=== PATIENT | male | born 1945 | race Caucasian/White ===

== ENCOUNTER 2019-12-14 09:38 | Outpatient (CLI) | payer OTHER, SELFPAY ==
[2019-12-14 10:20] LABS: Basophils Percent Auto 0.5 % (0.2-1.2); Eosinophils Absolute Auto 0.2 K/mm3 (0-0.3); Eosinophils Percent Auto 2.6 % (0-4.4); Hematocrit 40.7 % (42.0-52.0); Hemoglobin 13.9 g/dL (14.0-18.0); Immature Granulocyte Absolute 0.01 K/mm3 (0.00-0.031); Immature Granulocyte Percent A 0.1 % (0-0.5); Lymphocytes Absolute Auto 1.66 K/mm3 (0.9-3.2); Lymphocytes Percent Auto 22.7 % (18.3-44.2); Mean Corpuscular HGB Conc 34.2 g/dl (32-36); Mean Corpuscular Volume 93.6 fl (80-100); Mean Platelet Volume 9.8 fl (7.4-10.4); Monocytes Absolute Auto 0.7 K/mm3 (0.1-0.6); Monocytes Percent Auto 8.9 % (2.6-8.5); Neutrophils Absolute Auto 4.8 K/mm3 (1.3-6.7); Neutrophils Percent Auto 65.2 % (45.5-73.1); Platelet Count Result 173 k/mm3 (150-375); Red Blood Count 4.35 M/mm3 (4.6-6.20); Red Cell Distribution Width 12.6 % (11.5-14.5); White Blood Count 7.3 K/mm3 (4.5-10.0)
[2019-12-14 10:28] LABS: Hemoglobin A1C 5.4 % (<5.7)
[2019-12-14 10:34] LABS: Alanine Aminotransferase 24 U/L (4-50); Albumin Level 4.1 g/dL (3.5-5.1); Alkaline Phosphatase 69 U/L (38-126); Anion Gap 4 mmol/L (8-16); Aspartate Amino Transferase 30 U/L (17-59); Bilirubin,Total 0.8 mg/dL (0.2-1.3); Blood Urea Nitrogen 17 mg/dL (9-20); Calcium 9.2 mg/dL (8.4-10.2); Carbon Dioxide 29 mmol/L (22-30); Chloride 104 mmol/L (98-107); Cholesterol 128 mg/dL (0-200); Estimated Glomerular Filt Rate > 60; Glucose 110 mg/dL (75-110); HDL Direct 41 mg/dL; Potassium 4.7 mmol/L (3.4-5.0); Sodium 137 mmol/L (137-145); Triglycerides 65 mg/dL (<150)
[2019-12-14 10:45] LABS: LDL Cholesterol Direct 71 mg/dL
[2019-12-14 11:03] LABS: Prostate Specific Antigen 2.8 ng/mL (< OR = 4.0)
[2019-12-14 11:10] LABS: Free T4 Free Thyroxine 1.28 ng/mL (0.78-2.19)
== END 2019-12-14 09:39 | disposition home or self-care (01) ==
PROVIDERS: PCP Physician Assistant; Visit Provider Physician Assistant
DX: E78.5 Hyperlipidemia, unspecified (principal); Z79.899 Other long term (current) drug therapy; Z12.5 Encounter for screening for malignant neoplasm of prostate; Z13.1 Encounter for screening for diabetes mellitus
CPT/HCPCS: 36415; 80048; 80061; 80076; 83036; 84153; 84439; 84443; 85025; G0103

== ENCOUNTER 2019-12-21 15:10 | Outpatient (CLI) | payer OTHER, SELFPAY ==
[2019-12-21 16:34] LABS: Hematocrit 40.7 % (42.0-52.0); Mean Corpuscular HGB Conc 34.4 g/dl (32-36); Mean Corpuscular Hemoglobin 32.4 pg (26-34); Mean Corpuscular Volume 94.2 fl (80-100); Mean Platelet Volume 9.7 fl (7.4-10.4); Platelet Count Result 185 k/mm3 (150-375); Red Blood Count 4.32 M/mm3 (4.6-6.20); Red Cell Distribution Width 12.7 % (11.5-14.5)
[2019-12-21 16:49] LABS: CRP < 0.5 mg/dL (<1.0)
[2019-12-21 17:30] LABS: Erythrocyte Sedimentation Rate 10 mm/hr (0-20)
[2019-12-24 22:50] LABS: Anti Cyclic Citrullinated Pept <16 Units (<20)
== END 2019-12-21 15:11 | disposition home or self-care (01) ==
PROVIDERS: PCP Physician Assistant; Visit Provider Orthopaedic Surgery
DX: M35.3 Polymyalgia rheumatica (principal)
CPT/HCPCS: 36415; 85027; 85652; 86038; 86140; 86200; 86430

== ENCOUNTER 2020-06-27 08:52 | Outpatient (CLI) | payer OTHER, SELFPAY ==
--- NOTE | ~2020-06-27 | XR_ITS ---
EXAMINATION: XR hand RT min 3V EXAM DATE: 06/27/2020 09:12 INDICATION: Polyarthralgia. Bilateral hand pain. TECHNIQUE: Right hand frontal, lateral and oblique projections obtained and reviewed. Correlation is made to contralateral hand same date. FINDINGS: There is severe osteoarthritis at the right 1st carpometacarpal joint, moderate at the 1st metacarpophalangeal joint. Mild to moderate polyarticular interphalangeal primary osteoarthritis. The re are no acute fractures or dislocations identified. There is no subcutaneous gas. The soft tissue is unremarkable. There are no radiopaque foreign bodies. 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 Reviewed, dictated and finalized at location A. 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
--- NOTE | ~2020-06-27 | XR_ITS ---
EXAMINATION: XR hand LT min 3V EXAM DATE: 06/27/2020 09:12 INDICATION: Polyarthralgia, bilateral hand pain. Especially left thumb pain. TECHNIQUE: Left hand frontal, lateral and oblique projections obtained and reviewed. There is no conner or study for comparison. FINDINGS: There is severe osteoarthritis at the left 1st carpometacarpal joint, moderate at the 1st m etacarpophalangeal and interphalangeal joints. Otherwise mild to moderate polyarticular interphalange al primary osteoarthritis. There are no acute fractures or dislocations identified. There is no subc utaneous gas. The soft tissue is unremarkable. There are no radiopaque foreign bodies. 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 Reviewed, dictated and finalized at location A. 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
== END 2020-06-27 08:53 | disposition home or self-care (01) ==
PROVIDERS: PCP Physician Assistant
DX: M19.041 Primary osteoarthritis, right hand (principal); M19.042 Primary osteoarthritis, left hand; M18.0 Bilateral primary osteoarthritis of first carpometacarpal joints; R76.8 Other specified abnormal immunological findings in serum
CPT/HCPCS: 73130

== ENCOUNTER → 2021-03-01 02:19 | Outpatient (CLI) | payer OTHER, SELFPAY ==
[2021-03-01 20:26] LABS: SARS-CoV-2 RNA PCR Negative
== END ==
PROVIDERS: PCP Physician Assistant; Visit Provider Physician Assistant
DX: Z20.822 Contact with and (suspected) exposure to COVID-19 (principal)
CPT/HCPCS: C9803; U0003; U0005

== ENCOUNTER 2021-05-22 09:27 | Outpatient (CLI) | payer OTHER, SELFPAY ==
[2021-05-22 09:52] LABS: Basophils Absolute Auto 0.1 K/mm3 (0.0-0.1); Eosinophils Absolute Auto 0.1 K/mm3 (0-0.3); Eosinophils Percent Auto 2.9 % (0-4.4); Hematocrit 39.6 % (42.0-52.0); Hemoglobin 13.5 g/dL (14.0-18.0); Immature Granulocyte Absolute 0.01 K/mm3 (0.00-0.031); Immature Granulocyte Percent A 0.2 % (0-0.5); Lymphocytes Absolute Auto 1.46 K/mm3 (0.9-3.2); Lymphocytes Percent Auto 29.9 % (18.3-44.2); Mean Corpuscular HGB Conc 34.1 g/dl (32-36); Mean Corpuscular Hemoglobin 32.1 pg (26-34); Mean Corpuscular Volume 94.1 fl (80-100); Mean Platelet Volume 9.2 fl (7.4-10.4); Monocytes Absolute Auto 0.5 K/mm3 (0.1-0.6); Neutrophils Absolute Auto 2.7 K/mm3 (1.3-6.7); Platelet Count Result 156 k/mm3 (150-375); Red Blood Count 4.21 M/mm3 (4.6-6.20); Red Cell Distribution Width 12.7 % (11.5-14.5); White Blood Count 4.9 K/mm3 (4.5-10.0)
[2021-05-22 10:06] LABS: Alanine Aminotransferase 31 U/L (4-50); Albumin Level 4.5 g/dL (3.5-5.1); Alkaline Phosphatase 77 U/L (38-126); Anion Gap 7 mmol/L (8-16); Aspartate Amino Transferase 35 U/L (17-59); Bilirubin,Total 0.7 mg/dL (0.2-1.3); Blood Urea Nitrogen 18 mg/dL (9-20); Calcium 9.1 mg/dL (8.4-10.2); Carbon Dioxide 28 mmol/L (22-30); Chloride 105 mmol/L (98-107); Cholesterol 124 mg/dL (0-200); Estimated Glomerular Filt Rate > 60; Glucose 117 mg/dL (65-110); HDL Direct 44 mg/dL; Potassium 4.3 mmol/L (3.4-5.0); Sodium 140 mmol/L (137-145); Triglycerides 48 mg/dL (<150)
[2021-05-22 10:14] LABS: Hemoglobin A1C 5.5 % (<5.7)
[2021-05-22 10:17] LABS: LDL Cholesterol Direct 63 mg/dL
[2021-05-22 10:36] LABS: Prostate Specific Antigen 3.7 ng/mL (< OR = 4.0)
== END 2021-05-22 09:28 | disposition home or self-care (01) ==
LOC: ANHLAB 09:32
PROVIDERS: PCP Physician Assistant; Visit Provider Physician Assistant
DX: E78.5 Hyperlipidemia, unspecified (principal); Z12.5 Encounter for screening for malignant neoplasm of prostate; Z79.899 Other long term (current) drug therapy; Z13.1 Encounter for screening for diabetes mellitus
CPT/HCPCS: 36415; 80048; 80061; 80076; 83036; 84153; 84443; 85025; G0103

== ENCOUNTER 2021-07-03 07:28 | Outpatient (CLI) | payer OTHER, SELFPAY ==
--- NOTE | ~2021-07-03 | XR_ITS ---
EXAMINATION: XR hand BI arthritis min 3V DATE: 07/03/2021 07:50 INDICATION: Positive rheumatoid factor TECHNIQUE: Posteroanterior, lateral, and oblique views of the left and of the right hands as well as a ballcatchers view of both hands were obtained. COMPARISON: 06/27/2020 FINDINGS: Right hand: There is unchanged severe osteoarthritis at the triscaphe, first carpometacarpal, first m etacarpophalangeal, and first interphalangeal joint of the right hand. Moderate osteoarthritis is not ed in multiple interphalangeal joints of the right hand without significant change. There is no fract ure. The soft tissues are unremarkable. No erosions are identified. Left hand: There is unchanged severe osteoarthritis at the first carpometacarpal, first metacarpophal angeal, and first interphalangeal joints. There is moderate osteoarthritis of the triscaphe joint and multiple interphalangeal joints. No fracture is identified. The soft tissues are unremarkable. No er osions are identified. IMPRESSION: 1. Unchanged polyarticular osteoarthritis of the hands. Reviewed, dictated and finalized at location A.
== END 2021-07-03 07:29 | disposition home or self-care (01) ==
PROVIDERS: PCP Physician Assistant; Visit Provider Physician Assistant
DX: M05.79 Rheumatoid arthritis with rheumatoid factor of multiple sites without organ or systems involvement (principal)
CPT/HCPCS: 73130

== ENCOUNTER 2023-01-21 10:30 | Outpatient (CLI) | payer OTHER, SELFPAY ==
[2023-01-21 11:25] LABS: Basophils Percent Auto 0.5 % (0.2-1.2); Eosinophils Absolute Auto 0.1 K/mm3 (0-0.3); Eosinophils Percent Auto 2.3 % (0-4.4); Hematocrit 38.4 % (42.0-52.0); Hemoglobin 12.6 g/dL (14.0-18.0); Lymphocytes Absolute Auto 1.63 K/mm3 (0.9-3.2); Lymphocytes Percent Auto 29.3 % (18.3-44.2); Mean Corpuscular HGB Conc 32.8 g/dl (32-36); Mean Corpuscular Hemoglobin 31.8 pg (26-34); Monocytes Absolute Auto 0.6 K/mm3 (0.1-0.6); Neutrophils Absolute Auto 3.2 K/mm3 (1.3-6.7); Neutrophils Percent Auto 56.9 % (45.5-73.1); Platelet Count Result 165 k/mm3 (150-375); Red Blood Count 3.96 M/mm3 (4.6-6.20); Red Cell Distribution Width 12.6 % (11.5-14.5); White Blood Count 5.6 K/mm3 (4.5-10.0)
[2023-01-21 11:30] LABS: Appearance Urine Clear (Clear); Bilirubin Urine Negative (Negative); Blood Urine Negative (Negative); Color Urine Yellow (Yellow); Glucose Urine UA Negative (Negative); Ketones Urine Negative (Negative); Leukocyte Esterase Ur Negative LEU/UL (NEGATIVE); Nitrate Urine Negative (Negative); Protein Urine Negative (Negative); Specific Grav Ur 1.016 (1.001-1.035); Urobilinogen Urine 0.2 mg/dL (<2.0)
[2023-01-21 11:35] LABS: Add Urine Microscopic? NO
[2023-01-21 11:42] LABS: Alanine Aminotransferase 25 U/L (6-50); Albumin Level 4.2 g/dL (3.5-5.1); Alkaline Phosphatase 68 U/L (38-126); Anion Gap 5 mmol/L (8-16); Aspartate Amino Transferase 29 U/L (17-59); Bilirubin,Total 0.7 mg/dL (0.2-1.3); Blood Urea Nitrogen 20 mg/dL (9-20); Calcium 9.2 mg/dL (8.4-10.2); Carbon Dioxide 31 mmol/L (22-30); Chloride 103 mmol/L (98-107); Cholesterol 118 mg/dL (0-200); Estimated Glomerular Filt Rate > 60; Glucose 99 mg/dL (65-110); HDL Direct 42 mg/dL; Potassium 4.3 mmol/L (3.4-5.0); Sodium 139 mmol/L (137-145); Triglycerides 56 mg/dL (<150)
[2023-01-21 11:46] LABS: Hemoglobin A1C 5.5 % (<5.7)
[2023-01-21 11:53] LABS: LDL Cholesterol Direct 63 mg/dL
[2023-01-21 12:02] LABS: Iron 142 ug/dL (49-181)
[2023-01-21 12:11] LABS: Percent Iron Saturation 47 % (20-50)
[2023-01-21 12:56] LABS: Prostate Specific Antigen 3.9 ng/mL (< OR = 4.0)
[2023-01-21 13:45] LABS: Folic Acid 7.9 ng/mL (2.76->20)
[2023-01-21 17:36] LABS: Immature Reticulocyte Fraction 10.1 % (3.0-15.9); Reticulocyte Hemoglobin Conten 36.7 pg (28.2-35.7); Reticulocyte Percent 1.29 % (0.7-4.3); Reticulocytes Absolute 0.05 M/mm3 (0.02-0.1)
== END 2023-01-21 10:31 | disposition home or self-care (01) ==
PROVIDERS: PCP Physician Assistant; Visit Provider Physician Assistant
DX: Z12.5 Encounter for screening for malignant neoplasm of prostate (principal); E78.5 Hyperlipidemia, unspecified; Z79.899 Other long term (current) drug therapy; D64.9 Anemia, unspecified; Z13.1 Encounter for screening for diabetes mellitus
CPT/HCPCS: 36415; 80048; 80061; 80076; 81003; 82607; 82728; 82746; 83036; 83540; 83550; 84153; 84443; 85025; 85046; G0103

== ENCOUNTER 2023-10-07 18:32 | Emergency (ER) | payer MEDICARE, SELFPAY ==
--- NOTE | ~2023-10-07 | CT_ITS ---
EXAMINATION: CT brain wo con DATE: 10/07/2023 18:48 INDICATION: head injury . TECHNIQUE: Computed tomography (CT) of the head was performed without intravenous contrast. The mA wa s adjusted according to patient size. Iterative reconstruction technique was employed. The dose-lengt h product was 681.00 mGy-cm. COMPARISON: MR brain 03/24/2018. FINDINGS: No acute intracranial hemorrhage or extra-axial fluid collection. No hydrocephalus, mass, or herniation. No acute ischemic infarct. Unremarkable dural venous sinus attenuation. No acute osseous abnormality. Small right posterior scalp contusion The aerated spaces are clear. Mild atrophy and chronic white matter change. Atherosclerotic intracranial calcification. Bilateral l ens replacements. IMPRESSION: No acute intracranial process. Reviewed, dictated and finalized at location K.
[2023-10-07 18:35] VITALS: BP 140/61; PULSE 72; RESP 20; TEMP 36.6; O2SAT 97
--- NOTE | 2023-10-07 18:37 | ED.HEATRA ---
HPI - Head Injury General Chief complaint: Wound/Laceration <Diamante Desouza PA-C - Last Filed: 10/08/23 09:43> Stated complaint: fell and hit head during pickleball <Diamante Desouza PA-C - Last Filed: 10/08/23 09:43> Time Seen by Provider: 10/07/23 18:37 <Diamante Desouza PA-C - Last Filed: 10/08/23 09:43> Focused HPI: This is an 78-year-old male that presents to the emergency department after a fall today with head injury. Reports he was playing pickle ball, he backed up to get the ball and lost his balance. He hit the back of his head. He did not lose consciousness. He takes an aspirin daily. Denies vision changes, vomiting, numbness, weakness. GENERAL: Well-appearing, well-nourished, and in no acute distress. HEAD: Normocephalic. Hematoma to the posterior scalp CHEST: Clear to auscultation. ?No respiratory distress. HEART: Regular rate and rhythm.? NEURO: ?Alert and oriented x3. Patient screened in triage and initial orders placed.? ?Additional care and disposition to be based upon?diagnostic testing and treatment. <Diamante Desouza PA-C - Last Filed: 10/08/23 09:43> History of Present Illness HPI Narrative: Patient is a 78-year-old male with history of rheumatoid arthritis, here after a head injury. He states he was playing pickleball, stepped backwards to try to get a ball and fell backwards hitting the back of his head. He denies loss of consciousness. He was able to get himself off the ground. Presented to the ER after his head injury for evaluation. He is unsure when his last tetanus shot was, leaves it was many years ago. He does not take any blood thinners, has been told to take a daily aspirin but is not consistent with it. Denies nausea, vomiting, numbness or weakness in arms or legs, headache. <Trice Macias MD - Last Filed: 10/07/23 20:49> Related Data Home medications: Home Medications Medication Instructions Recorded Confirmed aspirin 325 mg tablet 325 mg PO DAILY 12/21/19 12/21/19 clopidogrel 75 mg tablet 75 mg PO DAILY 12/21/19 11/21/20 coenzyme Q10 100 mg capsule (Co 100 mg PO DAILY 12/21/19 11/21/20 Q-10) diclofenac sodium 75 mg 75 mg PO BID 12/21/19 11/21/20 tablet,delayed release glucosamine sulfate 1,000 mg 1,000 mg PO BID 12/21/19 11/21/20 capsule niacin 500 mg capsule,extended 500 mg PO QAM 12/21/19 11/21/20 release omega-3 fatty acids 1,000 mg 1,000 mg PO DAILY 12/21/19 11/21/20 capsule (Fish Oil Concentrate) pantoprazole 40 mg tablet,delayed 40 mg PO QAM 12/21/19 11/21/20 release <Diamante Desouza PA-C - Last Filed: 10/08/23 09:43> Allergies/Adverse reactions: Allergies Allergy/AdvReac Type Severity Reaction Status Date / Time No Known Allergies Allergy Unknown Verified 10/07/23 18:39 <Diamante Desouza PA-C - Last Filed: 10/08/23 09:43> Review of Systems Review of Systems: All systems reviewed & are unremarkable except as noted in HPI and below <Trice Macias MD - Last Filed: 10/07/23 20:49> [facility] Past Medical History Medical History: Medical History (Updated 10/08/23 @ 09:43 by Diamante Desouza PA-C) History of cardiac disorder <Diamante Desouza PA-C - Last Filed: 10/08/23 09:43> Surgical History Surgical History: Surgical History H/O cardiac catheterization (~2007) With Stent & Angioplasty <Diamante Desouza PA-C - Last Filed: 10/08/23 09:43> Family History Family History: Family History Mother Family history of arthritis Father Family history of heart disease in male family member before age 55 Other Cerebrovascular accident Hypertension <Diamante Desouza PA-C - Last Filed: 10/08/23 09:43> Social History Social History: Social History Smoking status: Never smoker Smoking end date: 03/25/84 Alcohol
[2023-10-07] MEDS: TETANUS,DIPHTHERIA,AC PERTUSSIS ADULT (0.5 ML) BOOSTRIX IM (19:19)
[2023-10-07 20:16] VITALS: BP 136/72; PULSE 68; RESP 18; O2SAT 99
== END 2023-10-07 20:17 | disposition home or self-care (01) ==
PROVIDERS: Emergency Provider Student in an Organized Health Care Education/Training Program; PCP Physician Assistant
DX: S00.03XA Contusion of scalp, initial encounter (principal); S00.01XA Abrasion of scalp, initial encounter; Z23 Encounter for immunization; Z95.5 Presence of coronary angioplasty implant and graft; Z87.891 Personal history of nicotine dependence; Z79.82 Long term (current) use of aspirin; Z79.02 Long term (current) use of antithrombotics/antiplatelets; W18.39XA Other fall on same level, initial encounter; Y93.79 Activity, other specified sports and athletics
CPT/HCPCS: 70450; 90471; 90715; 99284

== ENCOUNTER 2024-05-25 11:56 | Outpatient (CLI) | payer MEDICARE, SELFPAY | END 2024-05-25 11:57 | disposition home or self-care (01) | PROVIDERS: PCP Physician Assistant; Visit Provider Physician Assistant | DX: M05.79 Rheumatoid arthritis with rheumatoid factor of multiple sites without organ or systems involvement (principal); M19.042 Primary osteoarthritis, left hand; M85.642 Other cyst of bone, left hand; M85.641 Other cyst of bone, right hand | CPT/HCPCS: 73120 ==